=== PATIENT | female | born 1950 | race African-American/Black ===

== ENCOUNTER 2020-08-03 12:48 | Outpatient (CLI) | payer MEDICARE, SELFPAY ==
--- NOTE | 2020-08-07 17:07 | WPDPFTINT ---
PFT Interpretation PFT Interpretation: DOS: 08/03/2020 REQUESTING: Dr. Hernandez REASON FOR TESTING: Shortness of breath PULMONARY FUNCTION TESTS Results are reproducible. Spirometry: FEV1 is 76%, mildly decreased. FVC is 66%, mildly decreased. FEV1% is normal. BZT76-06% is 86%, normal. There is no change after bronchodilator. Lung volumes: TLC mildly reduced at 69% consistent with mild restriction. Residual volume 74%, normal. RV/TLC is elevated consistent with air trapping. Airway resistance is normal. Diffusion: DLCO is 44% moderately decreased. Flow volume loop: Mild scooping of the expiratory limb. IMPRESSION: Mixed restrictive and obstructive pattern, with mild restriction based on decreased TLC, and obstruction inferred from air trapping. She has a mild ventilatory impairment based on decreased FEV1 and FVC. Moderate diffusion impairment is present, and may be due to smoking. The restriction may be attributed to her increased BMI. Obstruction may represent another process such as asthma or COPD. Restriction can mask obstruction. Clinical correlation is recommended. Elissa Acosta MD
== END 2020-08-03 12:49 | disposition home or self-care (01) ==
PROVIDERS: PCP Family Medicine; Visit Provider Internal Medicine Critical Care Medicine
DX: R06.02 Shortness of breath (principal)
CPT/HCPCS: 94060; 94726; 94729

== ENCOUNTER 2021-01-15 13:00 | Outpatient (CLI) | payer MEDICARE, SELFPAY | END 2021-01-15 13:01 | disposition home or self-care (01) | LOC: ANHCOVIDVC 13:00 | PROVIDERS: PCP Family Medicine | DX: Z23 Encounter for immunization (principal) | CPT/HCPCS: 0001A; 91300 ==

== ENCOUNTER 2021-02-05 12:56 | Outpatient (CLI) | payer MEDICARE, SELFPAY | END 2021-02-05 12:57 | disposition home or self-care (01) | LOC: ANHCOVIDVC 12:56 | PROVIDERS: PCP Family Medicine | DX: Z23 Encounter for immunization (principal) | CPT/HCPCS: 0002A; 91300 ==

== ENCOUNTER 2021-07-24 12:14 | Outpatient (CLI) | payer MEDICARE, SELFPAY ==
--- NOTE | ~2021-07-24 | XR_ITS ---
EXAMINATION: XR shoulder RT min 2V INDICATION: Right shoulder pain TECHNIQUE: Four views of the right shoulder are submitted. COMPARISON: None FINDINGS: Normal alignment. No fracture. There is advanced osteoarthritis of the glenohumeral joint a nd mild osteoarthritis of the acromioclavicular joint. Soft tissues are unremarkable. IMPRESSION: 1. Polyarticular osteoarthritis. Reviewed, dictated and finalized at location B.
--- NOTE | ~2021-07-24 | XR_ITS ---
EXAMINATION: XR shoulder LT min 2V INDICATION: Left shoulder pain TECHNIQUE: Four views of the left shoulder are submitted. COMPARISON: None FINDINGS: Normal alignment. No fracture. There is moderate osteoarthritis of the glenohumeral joint a nd mild arthritis of the acromioclavicular joint. Soft tissues are unremarkable. IMPRESSION: 1. Polyarticular osteoarthritis. Reviewed, dictated and finalized at location B.
== END 2021-07-24 12:15 | disposition home or self-care (01) ==
PROVIDERS: PCP Family Medicine; Visit Provider Family Medicine
DX: M25.511 Pain in right shoulder (principal); M25.512 Pain in left shoulder; R29.898 Other symptoms and signs involving the musculoskeletal system; M19.012 Primary osteoarthritis, left shoulder; M19.011 Primary osteoarthritis, right shoulder
CPT/HCPCS: 73030

== ENCOUNTER 2021-08-13 10:30 | Outpatient (CLI) | payer MEDICARE, SELFPAY ==
--- NOTE | ~2021-08-13 | XR_ITS ---
EXAMINATION: CT abdomen pelvis wo/w con, XR abdomen/kub 1V DATE: 08/13/2021 11:17 (accession [id number]), 08/13/2021 10:52 (accession [id number]) INDICATION: Gross hematuria TECHNIQUE: Computed tomography (CT) of the abdomen and pelvis was performed without and with 130 cc O mnipaque 350 intravenous contrast. The dose-length product was 2957.90 mGy-cm. Automated exposure con trol and iterative reconstruction technique were employed. KUB. COMPARISON: KUB dated 08/13/2021. FINDINGS: 4 mm right middle lobe nodule, image 1. There is calcified granuloma in the right lower lob e. Cardiomegaly. No significant pleural or pericardial effusion. There are surgical changes of gastri c bypass surgery. There are cholecystectomy clips. Mild fatty infiltration of the liver. There is a l ipoma in the right lateral abdominal wall musculature measuring 5.9 x 3.1 cm. There is a fat-containi ng ventral hernia. The spleen, pancreas, adrenal glands and kidneys are unremarkable. No renal stones or hydronephrosis. Nonobstructive bowel gas pattern. The spleen, pancreas, adrenal glands and kidneys are normal. Urete rs are normal in course and caliber. Bladder is decompressed, although unremarkable. Colonic divertic ulosis without evidence for diverticulitis. Normal appendix. No free air or free fluid. Aorta is with in normal limits without evidence for aneurysm. No lymphadenopathy. KUB bowel gas pattern is nonobstructive. Moderate colonic fecal loading. There are pelvic phleboliths . Mild lumbar spondylosis. No acute osseous abnormality. IMPRESSION: 1. No acute abdominal abnormality. 2: No renal stones, hydronephrosis or ureteral stones. Bladder unremarkable. No findings to account f or hematuria. 3: Right middle lobe nodule measuring 4 mm, likely benign. Consider follow-up low dose CT chest in 1 2 months to assess stability. Reviewed, dictated and finalized at location A. [employer] IMPRESSION: 1. No acute abdominal abnormality. 2: No renal stones, hydronephrosis or ureteral stones. Bladder unremarkable. No findings to account for hematuria. 3: Right middle lobe nodule measuring 4 mm, likely benign. Consider follow-up low dose CT chest in 12 months to assess stability.
== END 2021-08-13 10:31 | disposition home or self-care (01) ==
PROVIDERS: PCP Family Medicine; Visit Provider Nurse Practitioner Adult Health
DX: R31.0 Gross hematuria (principal); R91.1 Solitary pulmonary nodule
CPT/HCPCS: 74018; 74178; Q9967

== ENCOUNTER → 2021-10-16 02:50 | Outpatient (CLI) | payer OTHER, SELFPAY ==
[2021-10-16 19:08] LABS: SARS-CoV-2 RNA PCR Positive
== END ==
PROVIDERS: PCP Family Medicine; Visit Provider Family Medicine
DX: U07.1 COVID-19 (principal)
CPT/HCPCS: C9803; U0003; U0005

== ENCOUNTER 2022-07-15 17:52 | Emergency (ER) | payer OTHER, SELFPAY ==
--- NOTE | ~2022-07-15 | XR_ITS ---
XR chest 1V portable DATE: 07/15/2022 20:24 INDICATION: Hypertension. COPD. TECHNIQUE: Portable AP chest on 07/11/2022 at 2020 hours COMPARISON: 07/2019 PA and lateral chest FINDINGS: Borderline heart size. Aortic unfolding. No hilar or mediastinal enlargement is evident. No pulmonary infiltrate or consolidation, pleural effusion or pulmonary vascular congestion or pneumo thorax. IMPRESSION: No active disease is detected on this limited single portable view Reviewed, dictated and finalized at location A.
--- NOTE | ~2022-07-15 | CT_ITS ---
EXAMINATION: CT brain wo con DATE: 07/15/2022 20:13 INDICATION: Headache. Hypertension. Patient sees black spots. TECHNIQUE: Computed tomography (CT) of the head was performed without intravenous contrast. The mA wa s adjusted according to patient size. Iterative reconstruction technique was employed. Exam dose: 98 3.67 mGy-cm total exam DLP. COMPARISON: None FINDINGS: Small chronic lacunar infarct of the head of the right caudate nucleus. No intracranial mas s lesion or hemorrhage, midline shift or mass effect is detected. Normal ventricular size. No subdural or epidural hematoma. Nonspecific diminished attenuation of the cerebral white matter is likely due to chronic small vessel ischemic changes. Blowout fracture of the medial wall of right orbit. Otherwise no skull fracture or bone destruction. Paranasal sinuses and mastoid air cells are otherwise unremarkable. IMPRESSION: Small chronic lacunar infarct of head of right caudate nucleus Blowout fracture of medial wall of right orbit Reviewed, dictated and finalized at Location A. Reviewed, dictated and finalized at location A.
[2022-07-15 18:20] VITALS: BP 160/86; PULSE 105; RESP 17; TEMP 36; O2SAT 99
[2022-07-15 19:01] VITALS: BP 174/106; PULSE 104; RESP 16; O2SAT 100
[2022-07-15 19:09] VITALS: BP 159/90; PULSE 98; RESP 20; O2SAT 100
--- NOTE | 2022-07-15 19:42 | ECG_ITS ---
Measurements Intervals [place] Rate: 97 P: 19 [place]: 132 QRS: 6 QRSD: 81 T: 17 QT: 315 QTc: 401 Interpretive Statements SINUS RHYTHM VOLTAGE CRITERIA FOR LVH [MEETS CRITERIA IN ONE OF: R(aVL), S(V1), R(V5), R(V5/V6)+S(V1)] NONSPECIFIC T-WAVE ABNORMALITY NO PREVIOUS ECG AVAILABLE FOR COMPARISON Electronically Signed On 07-16-2022 16:01:52 CDT by Tutu Martin M.D.
[2022-07-15 20:03] VITALS: PULSE 103
[2022-07-15] MEDS: METOPROLOL SUCCINATE EXT REL 25 MG TABCR PO (20:03)
[2022-07-15 20:08] LABS: Basophils Percent Auto 0.3 % (0.2-1.2); Eosinophils Absolute Auto 0.1 K/mm3 (0-0.3); Eosinophils Percent Auto 0.7 % (0-4.4); Hematocrit 38.5 % (37.0-47.0); Hemoglobin 11.6 g/dL (12.0-15.0); Immature Granulocyte Absolute 0.04 K/mm3 (0.00-0.031); Immature Granulocyte Percent A 0.5 % (0-0.5); Lymphocytes Absolute Auto 2.05 K/mm3 (0.9-3.2); Lymphocytes Percent Auto 23.2 % (18.3-44.2); Mean Corpuscular HGB Conc 30.1 g/dl (32-36); Mean Corpuscular Hemoglobin 25.6 pg (26-34); Mean Platelet Volume 10.5 fl (7.4-10.4); Monocytes Absolute Auto 0.8 K/mm3 (0.1-0.6); Monocytes Percent Auto 9.4 % (2.6-8.5); Neutrophils Absolute Auto 5.8 K/mm3 (1.3-6.7); Neutrophils Percent Auto 65.9 % (45.5-73.1); Platelet Count Result 253 k/mm3 (150-375); Red Blood Count 4.53 M/mm3 (4.2-5.4); White Blood Count 8.8 K/mm3 (4.5-10.0)
--- NOTE | 2022-07-15 20:12 | ED.GENADULT ---
HPI - General Adult General Chief complaint: Recheck/Abnormal Lab/Rx Stated complaint: elevated blood pressure Time Seen by Provider: 07/15/22 19:34 History of Present Illness HPI narrative: Patient is a 72-year-old female who presents the emergency department with chief complaint of decreased vision. Patient reports that today she missed a dose of her Toprol-XL and also noticed yesterday the patient reports that while she was driving she had where her vision became like a tunnel and did not completely lose her vision. Patient states she also had pressure in her head and reported that it improved and then started to return. The patient states that by the time she is arrived to the emergency department she is feeling much better at this time reports no nausea no focal neurological deficits denies paresthesias Related Data Home Medications Medication Instructions Recorded Confirmed latanoprost 0.005 % eye drops 1 drp RIGHT EYE QPM 03/04/22 05/16/22 Allergies Allergy/AdvReac Type Severity Reaction Status Date / Time No Known Allergies Allergy Mild Verified 07/15/22 18:23 Review of Systems Review of Systems: A 10 system review of systems was completed on the patient and is negative except for what is stated in the HPI. Nursing and ancillary documentation was reviewed. [facility] Past Medical History Medical History (Updated 07/15/22 @ 21:38 by Luis Alberto Pichardo MD) Anxiety Borderline diabetes History of gastrectomy HTN (hypertension) Hypercholesterolemia Surgical History Surgical History H/O: hysterectomy (2010) History of bilateral tubal ligation Hx of cholecystectomy (1984) Family History Family History Mother Diabetes mellitus Hypertension Father Malignant neoplasm of prostate, Onset Age: 72 Social History Social History Smoking status: Former smoker Alcohol intake: never Gender identity (if verbalized by the patient): Female Exam Narrative: GENERAL: Well-appearing, well-nourished, and in no acute distress. HEAD: Normocephalic, atraumatic. EYES: PERRLA and EOMI. ENT: Nares clear, no rhinorrhea or epistaxis. Mucous membranes moist. NECK: Supple. CHEST: Clear to auscultation. No respiratory distress. HEART: Regular rate and rhythm. No murmur heard. Normal peripheral pulses. ABDOMEN: Soft, nontender, nondistended, normal active bowel sounds. EXTREMITIES: Normal range of motion. No edema. SKIN: Warm, dry, no rash. NEURO: No focal deficits. Alert and oriented x3. PSYCH: Normal mood and affect. Course Course Emergency Course: Patient CT scan showed no evidence of acute infarct but did show evidence of an old lacunar infarct. The patient is currently alert oriented has a stroke scale of 0 the patient is currently at her baseline and feels much better now that her blood pressure has come down. The patient request to continue with outpatient therapy the patient was instructed to start doing daily blood pressure recording and to bring this to her primary care provider as she may need adjustment of her antihypertensive regimen. Vital Signs Vital signs: Vital Signs Temperature 36.0 C L 07/15/22 18:20 Pulse Rate 105 H 07/15/22 18:20 Respiratory Rate 17 07/15/22 18:20 Blood Pressure 160/86 H 07/15/22 18:20 Pulse Oximetry 99 07/15/22 18:20 Temperature 36.0 C L 07/15/22 18:20 Pulse Rate 93 07/15/22 21:09 Respiratory Rate 20 07/15/22 21:09 Blood Pressure 156/97 H 07/15/22 21:09 Pulse Oximetry 98 07/15/22 21:09 Medical Decision Making Vital Signs Vital Signs: Vital Signs Temperature 36.0 C L 07/15/22 18:20 Pulse Rate 105 H 07/15/22 18:20 Respiratory Rate 17 07/15/22 18:20 Blood Pressure 160/86 H 07/15/22 18:20 Pulse Oximetry 99 07/15/22 1
[2022-07-15 20:19] LABS: Lactic Acid Reflex 1.3 mmol/L (0.7-2.0); Prothrombin Time 13.2 Seconds (11.1-14.7)
[2022-07-15 20:20] LABS: Alanine Aminotransferase 13 U/L (6-35); Alkaline Phosphatase 131 U/L (38-126); Anion Gap 11 mmol/L (8-16); Aspartate Amino Transferase 20 U/L (14-36); Bilirubin,Total 0.5 mg/dL (0.2-1.3); Blood Urea Nitrogen 12 mg/dL (7-17); Carbon Dioxide 29 mmol/L (22-30); Chloride 103 mmol/L (98-107); Estimated CRCL calculation 79 ml/min; Estimated Glomerular Filt Rate > 60; Glucose 107 mg/dL (65-110); Potassium 3.6 mmol/L (3.4-5.0); Sodium 143 mmol/L (137-145)
[2022-07-15 20:32] LABS: Troponin I < 0.012 ng/mL (0.000-0.034)
[2022-07-15 21:09] VITALS: BP 156/97; PULSE 93; RESP 20; O2SAT 98
[2022-07-15 21:46] LABS: Add Urine Microscopic? YES; Appearance Urine Cloudy (Clear); Bacteria Urine Trace /hpf; Bilirubin Urine Negative (Negative); Blood Urine Negative (Negative); Color Urine Yellow (Yellow); Glucose Urine UA Negative (Negative); Ketones Urine Negative (Negative); Leukocyte Esterase Ur Negative LEU/UL (Negative); Mucus Urine Heavy /lpf; Nitrate Urine Negative (Negative); Protein Urine Negative (Negative); RBC Urine 0-2 /hpf (0-2); Specific Grav Ur 1.028 (1.001-1.035); Squamous Epithelial Cell Urine Few /hpf (Few)
[2022-07-15 22:07] VITALS: BP 158/90; PULSE 80; RESP 16; O2SAT 99
== END 2022-07-15 22:13 | disposition home or self-care (01) ==
PROVIDERS: Emergency Provider Emergency Medicine; PCP Family Medicine
DX: I10 Essential (primary) hypertension (principal); E78.00 Pure hypercholesterolemia, unspecified; Z87.891 Personal history of nicotine dependence
CPT/HCPCS: 36415; 70450; 71045; 80053; 81001; 83605; 83735; 84484; 85025; 85610; 85730; 93005; 99284; A9270

== ENCOUNTER 2022-12-28 18:53 | Emergency (ER) | payer OTHER, SELFPAY ==
[2022-12-28 19:08] VITALS: BP 141/88; PULSE 98; RESP 16; TEMP 36.6; O2SAT 99
--- NOTE | 2022-12-28 19:10 | ED.URI ---
HPI - URI/Sore Throat General Chief Complaint: Upper Respiratory Infection Stated Complaint: SORE THROAT Time Seen by Provider: 12/28/22 19:10 Source: patient, RN notes reviewed and old records reviewed Mode of arrival: ambulatory Limitations: no limitations History of Present Illness HPI Narrative: 72 female presents to [facility] with complaints of sore throat that started 4 days ago. 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 Patient reports that throat is especially sore when swallowing. Patient reports no acute cough or any known fevers. Patient reports that she has been using salt water gargles with no improvement. MD elicited complaint: sore throat Pertinent past history: COPD and seasonal allergies Onset (ago): day(s) (4) Consistency: constant Pain scale (0-10): 8 Exacerbating factors: swallowing Treatments prior to arrival: other (salt wter gargles) Related Data Home Medications Medication Instructions Recorded Confirmed latanoprost 0.005 % eye drops 1 drp RIGHT EYE QPM 03/04/22 12/28/22 Allergies Allergy/AdvReac Type Severity Reaction Status Date / Time No Known Allergies Allergy Mild Verified 12/28/22 19:01 Review of Systems Review of Systems: CONSTITUTIONAL: Denies malaise, chills, sweats, or fever. EYES: Denies visual changes, redness, or discharge. ENT: Reports rhinorrhea, congestion, no sinus pain,no otalgia, positive sore throat. CARDIOVASCULAR: Denies chest pain, palpitations, or edema. RESPIRATORY: Reports no acute cough.? Denies dyspnea. GASTROINTESTINAL: Denies abdominal pain, nausea, vomiting, diarrhea SKIN: Denies rash or itching. MUSCULOSKELETAL: Denies myalgia. NEUROLOGIC: Denies headache. All systems reviewed & are unremarkable except as noted in HPI and below PMFSH Past Medical History Medical History (Updated 12/29/22 @ 07:30 by Denise Pittman NP) Anxiety Borderline diabetes History of gastrectomy HTN (hypertension) Hypercholesterolemia Surgical History Surgical History H/O: hysterectomy (2010) History of bilateral tubal ligation Hx of cholecystectomy (1984) Family History Family History Mother Diabetes mellitus Hypertension Father Malignant neoplasm of prostate, Onset Age: 72 Social History Social History Smoking packs per day: 1 Smoking cigarettes per day: 20.0 Years smoked: 30 Smoking pack-years: 30.00 Smoking status: Former smoker Smoking end date: 09/22/96 Alcohol intake: never Lack of Transportation: No Lack of Food: Never True Current Housing: I Do Not Have Housing Concerned About Future Housing: No Difficulty Paying Gas/Electric Bills: YES Difficulty Paying for Meds: YES Currently Unemployed: No Education: Bachelor's Degree Difficulty w/ Childcare or Family Care: No Gender identity (if verbalized by the patient): Female Comments At time of signature, agree with nursing past medical, surgical, social and family history. There is no relevant family history pertinent to the presenting complaint Exam Narrative: GENERAL: Well-appearing, well-nourished,obese, and in no acute distress. HEAD: Normocephalic EYES: PERRLA, conjunctivae clear ENT: Nares clear, turbinates edematous and erythematous, clear discharge. Mucous membranes moist. TM pearly hill with dull light reflex bilaterally; no tragal tenderness. Oropharynx erythematous without lesions. Tonsils red and enlarged and without exudate, no drooling, no hoarseness, no trismus, uvula midline. NECK: Supple. lymphadenopathy CHEST: Clear to auscultation, breath sounds equal. No wheezing, rhonchi, rales, or stridor. No respiratory distress, speaks in full sentences.SAO2 99% on room air HEART: Regular rate and r
== END 2022-12-28 19:33 | disposition home or self-care (01) ==
PROVIDERS: Emergency Provider Registered Nurse; PCP Family Medicine
DX: J02.9 Acute pharyngitis, unspecified (principal); J02.0 Streptococcal pharyngitis; Z87.891 Personal history of nicotine dependence; R73.03 Prediabetes; I10 Essential (primary) hypertension; E78.00 Pure hypercholesterolemia, unspecified; F41.9 Anxiety disorder, unspecified
CPT/HCPCS: 87081; 87880; 99213; G0463

== ENCOUNTER 2023-04-28 11:29 | Emergency (ER) | payer OTHER, SELFPAY ==
--- NOTE | 2023-04-28 11:31 | ED.URI ---
HPI - URI/Sore Throat General Chief Complaint: Upper Respiratory Infection Stated Complaint: Sore throat Time Seen by Provider: 04/28/23 11:31 Source: patient Mode of arrival: ambulatory Limitations: no limitations History of Present Illness HPI Narrative: Luciano is a 72-year-old female patient presenting to the clinic today with complaints of a sore throat x4 days. She reports is also having some nasal drainage. Did have low-grade fever a few nights ago. Denies any chest pain or unusual shortness of breath. No known exposure to anyone with COVID, flu, or strep. Related Data Home Medications Medication Instructions Recorded Confirmed latanoprost 0.005 % eye drops 1 drp RIGHT EYE QPM 03/04/22 03/14/23 Allergies Allergy/AdvReac Type Severity Reaction Status Date / Time No Known Allergies Allergy Mild Verified 03/14/23 11:02 Review of Systems Review of Systems: Pertinent positives per HPI. Patient denies any , rash, headache, visual changes, dizziness, cough, shortness of breath, chest pain, palpitations, nausea, vomiting, diarrhea, constipation, abdominal pain, or any urinary issues. [facility] Past Medical History Medical History (Updated 04/28/23 @ 11:53 by Ric Han APRN) Anxiety Borderline diabetes History of gastrectomy HTN (hypertension) Hypercholesterolemia Surgical History Surgical History H/O: hysterectomy (2010) History of bilateral tubal ligation Hx of cholecystectomy (1984) Family History Family History Mother Diabetes mellitus Hypertension Father Malignant neoplasm of prostate, Onset Age: 72 Social History Social History Smoking packs per day: 1 Smoking cigarettes per day: 20.0 Years smoked: 30 Smoking pack-years: 30.00 Smoking status: Former smoker Smoking end date: 09/22/96 Alcohol intake: never Lack of Transportation: No Lack of Food: Never True Current Housing: I Do Not Have Housing Concerned About Future Housing: No Difficulty Paying Gas/Electric Bills: YES Difficulty Paying for Meds: YES Currently Unemployed: No Education: Bachelor's Degree Difficulty w/ Childcare or Family Care: No Gender identity (if verbalized by the patient): Female Comments At the time of my signature, I reviewed and agree with the nursing past medical, surgical, social, and family history. There is no relevant family history pertinent to the patient complaint. Exam Narrative: General: Well-developed, morbidly obese, in no apparent distress Head: Normocephalic, atraumatic Eyes: Pupils equally round and reactive to light bilaterally, EOM intact, sclera and conjunctive clear, no discharge, lids normal Ears: TMs intact and clear, ear canals clear, no drainage, grossly hearing normal. Nose: Nares patent, clear nasal discharge, moderate inflammation, no sinus tenderness. Mouth: Oropharynx red without lesions or masses, good dentition, MMM. Postnasal drip, even rise and fall of uvula-midline Neck: Supple, trachea midline, left enlargement of anterior cervical nodes, no thyroid masses or goiter palpable. Cardio: Regular rate and rhythm, s1 and s2 normal, no murmur appreciated. Resp: Clear to auscultation bilaterally anteriorly and posteriorly, no rhonchi, rales, wheezing or rubs Course Course Emergency Course: Portions of this record may have been created with voice recognition software. Level of Care: Express Care Visit Vital Signs Vital signs: Vital signs reviewed MDM - URI/Sore Throat MDM Narrative Medical decision making narrative: At the time of visit patient is resting comfortably on exam table. Strep screen was obtained and was negative in the clinic today. I suspect patient has URI/pharyngitis/postnasal drip. Supportive measures were d
[2023-04-28 11:45] VITALS: BP 128/98; PULSE 86; RESP 16; TEMP 35.7; O2SAT 99
== END 2023-04-28 11:54 | disposition home or self-care (01) ==
PROVIDERS: Emergency Provider Nurse Practitioner Family; PCP Family Medicine
DX: R09.82 Postnasal drip (principal); J06.9 Acute upper respiratory infection, unspecified; J02.9 Acute pharyngitis, unspecified; Z87.891 Personal history of nicotine dependence; I10 Essential (primary) hypertension; E78.00 Pure hypercholesterolemia, unspecified; R73.03 Prediabetes
CPT/HCPCS: 36415; 86706; 87081; 87880; 99213; G0463

== ENCOUNTER 2023-04-28 12:29 | Outpatient (CLI) | payer OTHER, SELFPAY ==
[2023-04-28 19:25] LABS: Hepatitis B Surface Anti Res Negative
== END 2023-04-28 12:30 | disposition home or self-care (01) ==
LOC: ANHGOSHLAB 12:31
PROVIDERS: PCP Family Medicine; Visit Provider Family Medicine
DX: Z11.59 Encounter for screening for other viral diseases (principal); B19.10 Unspecified viral hepatitis B without hepatic coma
CPT/HCPCS: 36415; 86706

== ENCOUNTER 2024-02-23 11:05 | Outpatient (CLI) | payer OTHER, SELFPAY ==
[2024-02-23 13:15] LABS: Microalbumin Urine Random 20.1 mg/L (0-16.7)
[2024-02-23 13:22] LABS: Creatinine Urine 241.9 mg/dL; MALB Creatinine Ratio 8.3 mg/g (0-30)
[2024-02-23 13:28] LABS: Alanine Aminotransferase 11 U/L (6-35); Alkaline Phosphatase 118 U/L (38-126); Anion Gap 5 mmol/L (4-12); Aspartate Amino Transferase 29 U/L (14-36); Bilirubin,Total 0.6 mg/dL (0.2-1.3); Blood Urea Nitrogen 15 mg/dL (7-17); Calcium 8.9 mg/dL (8.4-10.2); Carbon Dioxide 28 mmol/L (22-30); Chloride 108 mmol/L (98-107); Cholesterol 212 mg/dL (0-200); Estimated Glomerular Filt Rate > 60; Glucose 128 mg/dL (65-110); HDL Direct 40 mg/dL; Sodium 141 mmol/L (137-145)
[2024-02-23 13:37] LABS: LDL Cholesterol Direct 120 mg/dL
[2024-02-23 14:01] LABS: Triglycerides 194 mg/dL (<150)
[2024-02-23 14:13] LABS: Hemoglobin A1C 6.1 % (<5.7)
[2024-02-23 19:37] LABS: Vitamin D 25 Hydroxy 16.6 ng/mL
== END 2024-02-23 11:06 | disposition home or self-care (01) ==
LOC: ANHGOSHLAB 11:07
PROVIDERS: PCP Family Medicine; Visit Provider Nurse Practitioner
DX: E78.5 Hyperlipidemia, unspecified (principal); E55.9 Vitamin D deficiency, unspecified; E11.9 Type 2 diabetes mellitus without complications; F32.9 Major depressive disorder, single episode, unspecified
CPT/HCPCS: 36415; 80053; 80061; 82043; 82306; 83036; 84443

== ENCOUNTER 2024-10-04 14:22 | Outpatient (CLI) | payer OTHER, SELFPAY ==
[2024-10-04 20:09] LABS: Alanine Aminotransferase 13 U/L (6-35); Albumin Level 3.7 g/dL (3.5-5.1); Alkaline Phosphatase 126 U/L (38-126); Anion Gap 6 mmol/L (4-12); Aspartate Amino Transferase 27 U/L (14-36); Bilirubin,Total 0.7 mg/dL (0.2-1.3); Blood Urea Nitrogen 16 mg/dL (7-17); Carbon Dioxide 29 mmol/L (22-30); Chloride 106 mmol/L (98-107); Cholesterol 179 mg/dL (0-200); Estimated Glomerular Filt Rate > 60; Glucose 105 mg/dL (65-110); HDL Direct 44 mg/dL; Potassium 4.4 mmol/L (3.4-5.0); Sodium 141 mmol/L (137-145); Triglycerides 119 mg/dL (<150)
[2024-10-04 20:20] LABS: LDL Cholesterol Direct 89 mg/dL
[2024-10-04 22:24] LABS: Hemoglobin A1C 6.3 % (<5.7)
[2024-10-05 14:35] LABS: Creatinine Urine 281.9 mg/dL
[2024-10-05 14:39] LABS: MALB Creatinine Ratio 13.6 mg/g (0-30); Microalbumin Urine Random 38.3 mg/L (0-16.7)
== END 2024-10-04 14:23 | disposition home or self-care (01) ==
LOC: ANHGOSHLAB 14:24
PROVIDERS: PCP Family Medicine; Visit Provider Nurse Practitioner
DX: E78.5 Hyperlipidemia, unspecified (principal); E11.9 Type 2 diabetes mellitus without complications
CPT/HCPCS: 36415; 80053; 80061; 82043; 83036

== ENCOUNTER 2025-01-26 10:23 | Outpatient (CLI) | payer OTHER, SELFPAY ==
[2025-01-26 14:06] LABS: Albumin Level 3.7 g/dL (3.5-5.1); Anion Gap 6 mmol/L (4-12); Blood Urea Nitrogen 15 mg/dL (7-17); Calcium 9.1 mg/dL (8.4-10.2); Carbon Dioxide 29 mmol/L (22-30); Chloride 107 mmol/L (98-107); Estimated Glomerular Filt Rate > 60; Glucose 98 mg/dL (65-110); Phosphorus 3.6 mg/dL (2.5-4.5); Potassium 4.1 mmol/L (3.4-5.0); Sodium 142 mmol/L (137-145)
[2025-01-26 14:15] LABS: Complement C3 156 mg/dL (88-165)
[2025-01-26 14:22] LABS: Creatinine Urine 234.1 mg/dL
[2025-01-26 14:48] LABS: Total Protein Urine Random < 5 mg/dL; Ur Ttl Prot Creatinine Ratio < 0.02 mg/mg (0-0.20)
[2025-01-27 08:53] LABS: Protein, Total 6.5 g/dL (6.1-8.1)
[2025-01-27 12:24] LABS: Creatinine, Random Urine 218 mg/dL (20-275); Total Prot/Creat ratio mg/mg 0.092 (0.024-0.184); Total Protein/Creatinine Ratio 92 mg/g creat (24-184)
[2025-01-28 10:03] LABS: Albumin 3.3 g/dL (3.8-4.8); Alpha 1 Globulin 0.4 g/dL (0.2-0.3); Alpha 2 Globulin 0.8 g/dL (0.5-0.9); Beta 1 Globulin 0.4 g/dL (0.4-0.6); Gamma Globulin 1.2 g/dL (0.8-1.7)
[2025-01-29 13:03] LABS: ANCA Screen NEGATIVE (NEGATIVE)
[2025-01-29 13:59] LABS: Anti Glomerular Basement Memb <1.0 AI
== END 2025-01-26 10:24 | disposition home or self-care (01) ==
LOC: ANHGOSHLAB 10:24
PROVIDERS: PCP Family Medicine; Visit Provider Internal Medicine Nephrology
DX: R80.9 Proteinuria, unspecified (principal); E11.9 Type 2 diabetes mellitus without complications
CPT/HCPCS: 36415; 80069; 82570; 83520; 84155; 84156; 84165; 84166; 86036; 86038; 86039; 86160; 86225

== ENCOUNTER 2025-02-02 13:33 | Outpatient (CLI) | payer OTHER, SELFPAY ==
--- NOTE | ~2025-02-02 | US_ITS ---
US renal BI 02/02/2025 13:53 Procedure: Realtime transabdominal ultrasound of the kidneys and bladder. Indication: Proteinuria Comparison: No prior studies for comparison. Findings: Renal echotexture is normal bilaterally without hydronephrosis, contour deforming mass or r enal calculus. The right kidney measures 10.2 cm and left kidney measures 10 cm. Bladder within norm al limits. Impression: 1: Unremarkable renal ultrasound. No stones, masses or hydronephrosis. Reviewed, dictated and finalized at location A. Impression: 1: Unremarkable renal ultrasound. No stones, masses or hydronephrosis.
== END 2025-02-02 13:34 | disposition home or self-care (01) ==
LOC: GOSHIMG 13:35
PROVIDERS: PCP Family Medicine; Visit Provider Internal Medicine Nephrology
DX: R80.9 Proteinuria, unspecified (principal); E11.9 Type 2 diabetes mellitus without complications
CPT/HCPCS: 76775